=== PATIENT | male | born 1980 | race Caucasian/White ===

== ENCOUNTER 2017-04-13 15:48 | Emergency (ER) | payer BC ==
[2017-04-13] MEDS ORDERED: Lidocaine 2% W/EPI 1:100,000* 20 ML MDV INJ ONE (16:30)
[2017-04-13] MEDS ORDERED: Tetan/Diph/Pertus SYR(Tdap)* 0.5 ML SYR(BOOSTRIX) use SYR IM ONE (16:30)
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
[2017-04-13] MEDS ORDERED: Cephalexin CAP* 500 MG PO ONE (17:26)
== END 2017-04-13 17:48 | disposition home or self-care (01) ==
LOC: UCCORT 15:48
DX: S71.132A Puncture wound without foreign body, left thigh, initial encounter (principal); W22.09XA Striking against other stationary object, initial encounter; Y93.89 Activity, other specified; Y92.838 Other recreation area as the place of occurrence of the external cause; Y99.9 Unspecified external cause status
CPT/HCPCS: 12002; 90471; 90715; 99202; A9270-GY; G0463

== ENCOUNTER 2017-04-16 10:40 | Emergency (ER) | payer BC ==
[2017-04-16 11:03] VITALS: BP 119/66
--- NOTE | 2017-04-16 11:12 | UC ---
HPI Wound/Suture Re-check - HPI Summary HPI Summary: Here for sutures friday. No complications besides surrounding bruising. He has been taking care of it adequately. here for recheck. - History Of Current Complaint Chief Complaint: UCGeneralIllness Stated Complaint: RE-CHECK STITCHES Time Seen by Provider: 04/16/17 11:04 Hx Obtained From: Patient Onset/Duration: Sudden Onset Severity: Moderate - Allergies/Home Medications Allergies/Adverse Reactions: Allergies Allergy/AdvReac Type Severity Reaction Status Date / Time No Known Allergies Allergy Verified 04/16/17 10:55 Home Medications: Home Medications Acetaminophen TAB* [Tylenol TAB*] 650 mg PRN 04/16/17 [History] PMH/Surg Hx/FS Hx/Imm Hx Previously Healthy: Yes - Surgical History Surgical History: Yes Surgery Procedure, Year, and Place: hernia age 11 yo - Family History Known Family History: Positive: Other - positive [facility] for laceration - Social History Alcohol Use: Weekly Alcohol Amount: a few during the week Substance Use Type: None Smoking Status (MU): Never Smoked Tobacco - Immunization History Most Recent Influenza Vaccination: NONE Most Recent Tetanus Shot: 04/13/17 Most Recent Pneumonia Vaccination: N/A Review of Systems All Other Systems Reviewed And Are Negative: Yes Physical Exam Triage Information Reviewed: Yes Appearance: No Pain Distress - no pain at rest. There is pain upon palpation of the bruised area proximal and distal to the wound. Vital Signs: Initial Vital Signs Temp 97.5 F 04/16/17 10:57 Pulse 66 04/16/17 10:57 Resp 16 04/16/17 10:57 BP 119/66 04/16/17 10:57 Pulse Ox 100 04/16/17 10:57 Vital Signs Reviewed: Yes Eye Exam: Normal Neck exam: Normal Respiratory Exam: Normal Cardiovascular Exam: Normal Abdominal Exam: Normal Musculoskeletal Exam: Normal Neurological Exam: Normal Skin Exam: Other - left posterior thigh wound clean and dry without redness or induration. Course/Dx - Differential Dx - Laceration/Wound Differential Diagnoses: Cellulitis, Compartment Syndrome, Dehiscence, Healing Wound, Joint Infection Provider Diagnoses: wound check after sutures. Discharge - Discharge Plan Condition: Good Disposition: HOME Patient Education Materials: Acute Wound Care (ED) Referrals: No Primary Care Phys,NOPCP [Primary Care Provider] - Additional Instructions: return here in one week for suture removal.
== END 2017-04-16 11:28 | disposition home or self-care (01) ==
LOC: UCCORT 10:40
DX: S71.112D Laceration without foreign body, left thigh, subsequent encounter (principal); X58.XXXD Exposure to other specified factors, subsequent encounter; Y92.9 Unspecified place or not applicable
CPT/HCPCS: 99212; G0463

== ENCOUNTER 2017-04-23 09:29 | Emergency (ER) | payer BC ==
[2017-04-23 10:07] VITALS: BP 138/72
--- NOTE | 2017-04-23 10:24 | UC ---
HPI Wound/Suture Re-check - HPI Summary HPI Summary: 6 sutures posterior left thigh---healing well no c/o bruise resolving - History Of Current Complaint Chief Complaint: UCSkin Stated Complaint: SUTURE REMOVAL Time Seen by Provider: 04/23/17 10:04 Hx Obtained From: Patient Onset/Duration: Sudden Onset, Lasting Days - 10 Severity: Mild - Allergies/Home Medications Allergies/Adverse Reactions: Allergies Allergy/AdvReac Type Severity Reaction Status Date / Time No Known Allergies Allergy Verified 04/23/17 10:07 Home Medications: Home Medications NK [No Home Medications Reported] 04/23/17 [History Confirmed 04/23/17] PMH/Surg Hx/FS Hx/Imm Hx Previously Healthy: Yes - Surgical History Surgical History: Yes Surgery Procedure, Year, and Place: hernia age 11 yo - Family History Known Family History: Positive: Other - no medical issues reported in family lineage - Social History Occupation: Employed Full-time Lives: With Family Alcohol Use: Weekly Alcohol Amount: a few during the week Substance Use Type: None Smoking Status (MU): Never Smoked Tobacco - Immunization History Most Recent Influenza Vaccination: NONE Most Recent Tetanus Shot: 04/13/17 Most Recent Pneumonia Vaccination: N/A Review of Systems Constitutional: Negative Skin: Other - healing wound posterior thigh, resolving contusion-- Eyes: Negative ENT: Negative Respiratory: Negative Cardiovascular: Negative Gastrointestinal: Negative Genitourinary: Negative Motor: Negative Neurovascular: Negative Musculoskeletal: Negative Neurological: Negative Psychological: Negative All Other Systems Reviewed And Are Negative: Yes Physical Exam Triage Information Reviewed: Yes Appearance: Well-Appearing, No Pain Distress, Well-Nourished Vital Signs: Initial Vital Signs Temp 97.9 F 04/23/17 10:03 Pulse 73 04/23/17 10:03 Resp 14 04/23/17 10:03 BP 138/72 04/23/17 10:03 Pulse Ox 99 04/23/17 10:03 Vital Signs Reviewed: Yes Eye Exam: Normal Eyes: Positive: Conjunctiva Clear ENT Exam: Normal ENT: Positive: Normal ENT inspection, Hearing grossly normal. Negative: Nasal congestion, Nasal drainage, Trismus, Muffled/hoarse voice Dental Exam: Normal Neck exam: Normal Neck: Positive: Supple, Nontender Respiratory Exam: Normal Respiratory: Positive: Chest non-tender, No respiratory distress, No accessory muscle use Cardiovascular Exam: Normal Cardiovascular: Positive: RRR, Pulses Normal, Brisk Capillary Refill Musculoskeletal Exam: Normal Musculoskeletal: Positive: Strength Intact, ROM Intact, No Edema Neurological Exam: Normal Neurological: Positive: Alert, Muscle Tone Normal Psychological Exam: Normal Skin Exam: Normal Skin: Positive: Other - healing wound left posterior thigh, resolving contusion Re-Evaluation - Re-Evaluation First Eval Change: Improved - sutures removed, steri strips applied--pt tolerated well Course/Dx - Course Course Of Treatment: steri strips dresing follow with pcp prn - Differential Dx - Laceration/Wound Differential Diagnoses: Abscess, Cellulitis, Hematoma, Other - healing wound Provider Diagnoses: healing wound, resolving eechymosis, left thigh Discharge - Discharge Plan Condition: Stable Disposition: HOME Patient Education Materials: Stitches Removal (ED) Referrals: Ivan Dow MD [Primary Care Provider] - If Needed
== END 2017-04-23 10:34 | disposition home or self-care (01) ==
LOC: UCCORT 09:29
DX: Z48.02 Encounter for removal of sutures (principal)